=== PATIENT | female | born 1960 | race Caucasian/White ===

== ENCOUNTER 2017-02-20 13:38 | Emergency (ER) | payer BC ==
[2017-02-20 14:51] LABS: BASOPHILS 0.5 % (0.0-2.0); HEMATOCRIT 36.2 % (36.0-48.0); LYMPHOCYTES 4.4 % (20.0-40.0); LYMPHOCYTES# 0.4 X 10^3uL (0.8-3.8); MEAN CELL VOLUME 80.9 fL (80.0-100.0); MEAN CORPUS. HGB CONCENTRATION 33.3 g/dL (32.0-36.0); MEAN CORPUSCULAR HEMOGLOBIN 26.9 pg (29.0-35.0); MEAN PLATELET VOLUME 7.5 fL (7.4-10.4); MONOCYTES 2.3 % (2.0-10.0); MONOCYTES# 0.2 X 10^3uL (0.2-1.0); RED BLOOD COUNT 4.48 X 10^6uL (4.20-6.10); WHITE BLOOD COUNT 8.6 X 10^3uL (3.9-10.7)
[2017-02-20 14:55] LABS: BILIRUBIN, DIRECT 0.3 mg/dL (0.0-0.4); BILIRUBIN, TOTAL 0.6 mg/dL (0.2-1.3); CALCIUM 10.5 mg/dL (8.4-10.2); POTASSIUM 5.6 mmol/L (3.5-5.1); TOTAL PROTEIN 9.1 g/dL (6.3-8.2)
[2017-02-20 15:11] LABS: NEUTROPHILS 92.8 % (54.0-75.0)
[2017-02-20] MEDS ORDERED: ONDANSETRON HCL 4 MG/2 ML VIAL ONE (15:15)
--- NOTE | 2017-02-20 15:55 | CT REPORT ---
HISTORY: Nausea, vomiting. COMPARISON: None. TECHNIQUE: This examination was performed using automated exposure control, adjustment of mA or kV according to patient size, and/or use of iterative reconstruction technique. Axial contiguous images of the abdome n and pelvis were obtained without oral or IV contrast, coronal reformat images also performed. FINDINGS: The visualized lung bases are within normal limits. The heart apex appears normal. Liver has a normal noncontrast appearance. Gallbladder surgically absent. Severe left renal atrophy. Mild prominence of the right renal pelvis without kaleigh hydronephrosis. The pancreas and adrenal glands are unremarkabl e. The spleen is unremarkable. A few dilated fluid-filled loops of mid abdominal small bowel with some fecal small bowel in the righ t lower quadrant. The colon is decompressed. Multiple anterior abdominal wall varices. No aggressive bone lesion. Previous pelvic lymph node dissection. IMPRESSION: 1. Mildly dilated, fluid-filled loops of small bowel in the midabdomen with a fecalized loop in the r ight lower quadrant. This suggests a partial small bowel obstruction although the transition point is not visualized. This could be better assessed with oral contrast. Given history of surgery, this may be due to underlying adhesions. 2. Prior cholecystectomy. 3. Severe left renal atrophy. Final Electronic Signature: This report was electronically signed by Steve Roblero MD on 02/20/2017 3:53 PM. [email or web address] /
--- NOTE | 2017-02-20 18:47 | ER PHYSICIAN DOCUMENTATION ---
Physician Documentation [facility] Name:Joanna Mccormick Age:56 yrs Sex:Female :1960 Arrival Date:02/20/2017 Time:13:38 Bed4 Private MD: Cr Ramirez Disposition: 02/22 07:28 Chart complete. tl1 Disposition: 02/20/17 17:47 Discharged to Home/Self Care. Impression: Abdominal Pain, Periumbilical. - Condition is Good. - Discharge Instructions: Abdomen - ABDOMINAL PAIN, Unknown Cause, (Female). - Medical Reconciliation form form. - Follow up: Private Physician; When: 2 - 3 days; Reason: Recheck today's complaints, Continuance of care. - Problem is new. - Symptoms have improved. - Notes: GO TO [facility] IF YOUR PAIN AND VOMITING RECUR. HPI: 02/20 14:18 This 56 yrs old Female presents to ER via Private Vehicle with complaints of tl1 abdominal pain, nausea and vomiting. . 14:18 She is visiting from [place] and has a history of cervical and vaginal cancer, s/p chemo tl1 and XRT. She has had a cholecystectomy and appendectomy She is on Xarelto for a DVT diagnosed about a week ago. She was fine until this AM when at about 0730 when she noticed nausea followed by crampy right lower periumbilical area pain that has been 7/10 at times. Vomiting has been bilious. No blood. Last BM 2 days ago.. Historical: - Allergies: No known drug Allergies; - Home Meds: 1. Xarelto 15 mg oral tab 2. hydralazine 25 mg oral tab 1 tab 2 times per day with food 3. amlodipine 10 mg oral tab 1 tab once daily 4. metoprolol tartrate 25 mg oral tab 1 tab once daily 5. escitalopram oral 6. OxyContin Oral - PMHx: Hypertension; DVT; VAGINAL AND CERVICLE CANCER ; LYMPHADEMA; DEPRESSION; OBESITY; - PSHx: Appendectomy; Cholecysectomy; Tonsillectomy; Hysterectomy; NEPHRECTOMY; - Tetanus: < 10 years. - Ebola Screening: : Patient negative for fever greater than or equal to 101.5 degrees Fahrenheit, and additional compatible Ebola Virus Disease symptoms. - Immunization history: Flu Vaccine < 1 year. - Social history: Smoking status: Patient states was never smoker of tobacco. ROS: 14:30 Abdomen/GI: Positive for abdominal pain, nausea, vomiting, constipation, Negative for tl1 hematemesis, black/tarry stool, rectal bleeding. 14:30 All other systems are negative. Exam: 15:00 Head/Face: Normocephalic, atraumatic. tl1 Neck: Trachea midline, no thyromegaly or masses palpated, and no cervical lymphadenopathy. Supple, full range of motion without nuchal rigidity, or vertebral point tenderness. No Meningismus. Chest/axilla: Normal chest wall appearance and motion. Nontender with no deformity. No lesions are appreciated. Cardiovascular: Regular rate and rhythm with a normal S1 and S2. No gallops, murmurs, or rubs. Normal PMI, no JVD. No pulse deficits. 15:00 Respiratory: Lungs have equal breath sounds bilaterally, clear to auscultation and tl1 percussion. No rales, rhonchi or wheezes noted. No increased work of breathing, no retractions or nasal flaring. 15:00 Constitutional: The patient appears alert, awake, well developed, well hydrated, well groomed, well nourished, uncomfortable. 15:00 Abdomen/GI: Inspection: abdomen appears normal, Bowel sounds: diminished, Palpation: soft, moderate abdominal tenderness, in the umbilical area, Indicators: McBurney's point is not tender, Lehman's sign is negative, Liver: Vital Signs: 13:55 BP 168 / 61; Pulse 81; Resp 16; Temp 98.3(O); Pulse Ox 90% on R/A; Weight 136.08 kg arc (R); Height 5 ft. 6 in. (167.64 cm) (R); Pain 6/10; 15:11 BP 146 / 77; Pulse 77; Resp 16; Pulse Ox 94% on 2 lpm NC; rh 17:08 BP 156 / 56; Pulse 73; Resp 16; Pulse Ox 92% on R/A; Pain 0/10; nf 18:20 BP 144 / 62; Pulse 74; Resp 16; Pulse Ox 92% on R/A; Pain 0/10; nf 13:55 Body Mass Index 48.42 (136.08 kg, 167.64 cm) arc MDM: 13:53 Patient medically screened. tl1 14:18 Patient medically screened. tl1 16:00 Differential diagnosis: bowel obstruction, Mesenteric ischemia or infarction, tl1 non-specific abd pain, Peptic Ulcer Disease, Perf. Duodenal Ulcer, Perf. Gastric Ulcer. Data reviewed: vital signs, nurses notes, lab test result(s), CBC, electrolytes, hepatic panel, radiologic studies, CT scan, and as a result, I will discharge patient. Counseling: I had a detailed discussion with the patient and/or guardian regarding: the historical points, exam findings, and any diagnostic results supporting the discharge/admit diagnosis, lab results, radiology results, the need for outpatient follow up, a general surgeon, to return to the emergency department if symptoms worsen or persist or if there are any questions or concerns that arise at home. Medication response: The patient's symptoms have improved, Dilaudid. Response to treatment: the patient's symptoms have markedly improved after treatment, and as a result, I will discharge patient. Physician consultation: Dr General Feliciano at [facility] was called at 17:00, was contacted at 17:00, regarding patient's condition, and will see patient in ED, if symptoms recur. ED course: Her pain was significantly better after dilaudid and repeat abdominal exam showed less tenderness, and her nausea resolved. I told her she seems to have a partial small bowel obstruction that could get better or worse. She lives in the [facility] area, near [facility] and will f/u there for any recurrence or worsening of her symptoms. She is stable for d/c at this time.. 02/20 15:12 Order name: CBC AUTO DIF, MDIF/RMOR IF IND; Complete Time: 15:29 EDMS 02/20 15:27 Interpretation: WHITE BLOOD COUNT 8.6; HEMOGLOBIN 12.0; HEMATOCRIT 36.2; PLATELET COUNT tl1 328; NEUTROPHILS 92.8; LYMPHOCYTES 4.4. 02/20 15:29 Order name: BASIC METABOLIC PANEL; Complete Time: 16:21 EDMS 02/20 16:21 Interpretation: SODIUM 143; POTASSIUM 5.6; CHLORIDE 102; CARBON DIOXIDE 27; GLUCOSE tl1 148; BLOOD UREA NITROGEN 37; CREATININE 2.0; EST GLOMERULAR FILTRATION RATE 27; CALCIUM 10.5. 02/20 15:29 Order name: HEPATIC PANEL; Complete Time: 16:21 EDMS 02/20 16:22 Interpretation: ALKALINE PHOSPHATASE 138; AST 60; TOTAL PROTEIN 9.1. [facility] 02/20 15:29 Order name: LIPASE; Complete Time: 16:21 EDMS 02/20 16:22 Interpretation: LIPASE 162. [facility] 02/20 19:51 Order name: UA W/ MICRO -CULTURE IF IND EDMS 02/21 06:42 Order name: URINE CULTURE EDMS 02/22 09:36 Order name: NEGATIVE SENSITIVITY PANEL EDCO 02/20 15:56 Order name: CAT SCAN; ABD/[place] [id number]; Complete Time: 16:21 EDMS 02/20 16:21 Interpretation: see radiologist report. [facility] 02/20 14:01 Order name: NPO; Complete Time: 14:05 tl1 02/20 14:05 Order name: Iv Saline Lock; Complete Time: 14:05 02/20 14:06 Order name: Oxygen; Complete Time: 14:06 rh Dispensed Medications: 15:00 Drug: NS 0.9% 1000 ml; Route: IV; Rate: bolus; Site: left antecubital; rh 17:45 Follow up: IV Status: Completed infusion nf 15:10 Drug: Zofran 4 mg; Route: IVP; Infused Over: 2 mins; Site: left antecubital; rh 15:23 Follow up: Response: Nausea is decreased rh 15:10 Drug: Dilaudid 0.5 mg; Route: IVP; Site: left antecubital; rh 15:23 Follow up: Response: Pain is decreased rh Signatures: Carie Guzman RN RN nf Leigh, Tom, MD MD [facility] Jerri Hutchinson
--- NOTE | 2017-02-20 18:47 | ER NURSING DOCUMENTATION ---
Nurse's Notes [facility] Name:Joanna Mccormick Age:56 yrs Sex:Female :1960 Arrival Date:02/20/2017 Time:13:38 Bed4 Private MD: Diagnosis:Abdominal Pain, Periumbilical Presentation: 02/20 13:51 Acuity: CASSIDY 2 rh 14:11 Presenting complaint: Patient states: RLQ abdominal pain began this AM, described as rh cramping. Pt c/o n nausea and vomiting as well. Transition of care: Home. 14:11 Method Of Arrival: Private Vehicle rh Triage Assessment: 14:31 General: Appears in no apparent distress, Behavior is cooperative. Pain: Complains of rh pain in right lower quadrant. EENT: Oral mucosa is moist. Neuro: Level of Consciousness is awake, alert, obeys commands, Oriented to person, place, time, event. Cardiovascular: Capillary refill < 3 seconds. Respiratory: Airway is patent Respiratory effort is even, unlabored, Respiratory pattern is regular, symmetrical, Denies shortness of breath. GI: Abdomen is non- distended Reports lower abdominal pain, bloating, cramping, nausea, vomiting, Denies diarrhea. : No deficits noted. Derm: Skin is intact, is healthy with good turgor, Skin is pink, warm & dry. Musculoskeletal: Circulation, motion, and sensation intact Range of motion. Historical: - Allergies: No known drug Allergies; - Home Meds: 1. Xarelto 15 mg oral tab 2. hydralazine 25 mg oral tab 1 tab 2 times per day with food 3. amlodipine 10 mg oral tab 1 tab once daily 4. metoprolol tartrate 25 mg oral tab 1 tab once daily 5. escitalopram oral 6. OxyContin Oral - PMHx: Hypertension; DVT; VAGINAL AND CERVICLE CANCER ; LYMPHADEMA; DEPRESSION; OBESITY; - PSHx: Appendectomy; Cholecysectomy; Tonsillectomy; Hysterectomy; NEPHRECTOMY; - Tetanus: < 10 years. - Ebola Screening: : Patient negative for fever greater than or equal to 101.5 degrees Fahrenheit, and additional compatible Ebola Virus Disease symptoms. - Immunization history: Flu Vaccine < 1 year. - Social history: Smoking status: Patient states was never smoker of tobacco. Screenin:32 Infectious Disease Risk None. Abuse screen: Denies threats or abuse. Denies injuries rh from another. Nutritional screening: No deficits noted. Assessment: 14:32 See Triage Assessment done by same RN. rh 17:00 Reassessment: re-evaluation by Ryan; awaiting disposition; has not yet given urine nf sample and IV fluids still infusing. 17:11 Reassessment: re-evaluation by Ryan. nf 18:45 Reassessment: up to bathroom with assistance and was able to provide a urine sample; nf patient and family state they want to be discharged and not wait for urine urine results - Ryan aware and ok with plan. Vital Signs: 13:55 BP 168 / 61; Pulse 81; Resp 16; Temp 98.3(O); Pulse Ox 90% on R/A; Weight 136.08 kg arc (R); Height 5 ft. 6 in. (167.64 cm) (R); Pain 6/10; 15:11 BP 146 / 77; Pulse 77; Resp 16; Pulse Ox 94% on 2 lpm NC; rh 17:08 BP 156 / 56; Pulse 73; Resp 16; Pulse Ox 92% on R/A; Pain 0/10; nf 18:20 BP 144 / 62; Pulse 74; Resp 16; Pulse Ox 92% on R/A; Pain 0/10; nf 13:55 Body Mass Index 48.42 (136.08 kg, 167.64 cm) arc ED Course: 13:40 Oxygen Oxygen administration via nasal cannula @ 2L/min. rh 13:45 Notified ED Physician of patient's arrival and chief complaint. Dr. Boss notified. rh 13:46 Patient arrived in ED. cj 13:51 Jerri Hutchinson is Primary Nurse. rh 13:51 Triage completed. rh 13:53 Cr Boss MD is Attending Physician. tl1 14:19 Inserted peripheral IV: 20 gauge in left antecubital area. arc 14:32 Valuables Remains with patient Patient has correct armband on for positive rh identification. Placed in gown. Bed in low position. Call light in reach. Side rails up X 1. 15:[address] pm1 15:[address] back [address]. pm1 16:10 Report received from Ranjana. nf Administered Medications: 15:00 Drug: NS 0.9% 1000 ml; Route: IV; Rate: bolus; Site: left antecubital; rh 17:45 Follow up: IV Status: Completed infusion nf 15:10 Drug: Zofran 4 mg; Route: IVP; Infused Over: 2 mins; Site: left antecubital; rh 15:23 Follow up: Response: Nausea is decreased rh 15:10 Drug: Dilaudid 0.5 mg; Route: IVP; Site: left antecubital; rh 15:23 Follow up: Response: Pain is decreased rh Intake: 18:26 IV: 1000ml; Total: 1000ml. nf Output: 18:26 Urine: 1ml (Voided); Total: 1ml. nf Outcome: 17:47 Discharge ordered by . [email or web address] 18:26 Discharged to home via wheelchair. nf 18:26 Condition: improved 18:26 Discharge Assessment: Patient awake, alert and oriented x 3. No cognitive and/or functional deficits noted. Patient verbalized understanding of disposition instructions. 18:26 Discharge instructions given to patient, family, Instructed on discharge instructions, follow up and referral plans. medication usage, Demonstrated understanding of instructions. 18:26 IV D/Salvador 02/21 17:44 Discharge F/U Call: Spoke with: spouse with permission of patient. Name: pt was st admitted to [facility] for a partial SBO last night. Signatures: Yvonne Peña RN RN Carie Guzman RN RN Alaina Mejía pm1 Cr Boss MD MD tl1 Lavern Purdy, Jerri Garcia Jenni Hartman
[2017-02-20 19:21] LABS: URINE MUCUS NONE SEEN (Up to 25%); URINE RBC NONE SEEN (0-5/hpf); URINE SQUAMOUS EPITHELIAL CELL NONE SEEN (<= 15/hpf)
[2017-02-20 19:49] LABS: URINE APPEARANCE CLOUDY; URINE COLOR YELLOW; URINE SPECIFIC GRAVITY 1.015 (0.001-1.035)
[2017-02-20 19:50] LABS: URINE BILIRUBIN NEGATIVE (NEGATIVE); URINE BLOOD NEGATIVE (NEGATIVE); URINE GLUCOSE NORMAL (NEGATIVE); URINE KETONE NEGATIVE (NEGATIVE); URINE LEUKOCYTE ESTERASE NEGATIVE (NEGATIVE); URINE NITRITE POSITIVE (NEGATIVE); URINE PH 5.5 (5-7); URINE PROTEIN 30mg/dL (1+) (NEG - TRACE); URINE UROBILINOGEN 0.2mg/dL (Normal) (NEG-1mg/dL); URINE WBC 0-4/hpf (0-4/hpf)
[2017-02-20 19:55] LABS: URINE BACTERIA >50 ORGANISMS/hpf (<10/hpf)
== END 2017-02-20 18:47 | disposition home or self-care (01) ==
LOC: ER 13:38
DX: R10.33 Periumbilical pain (principal); R11.2 Nausea with vomiting, unspecified; N39.0 Urinary tract infection, site not specified; B96.20 Unspecified Escherichia coli [E. coli] as the cause of diseases classified elsewhere; Z86.718 Personal history of other venous thrombosis and embolism; Z79.01 Long term (current) use of anticoagulants; Z85.41 Personal history of malignant neoplasm of cervix uteri; Z85.44 Personal history of malignant neoplasm of other female genital organs; Z92.21 Personal history of antineoplastic chemotherapy; Z92.3 Personal history of irradiation; I10 Essential (primary) hypertension; Z79.899 Other long term (current) drug therapy
CPT/HCPCS: 74176; 80048; 80076; 81001; 83690; 85025; 87077; 87086; 87186; 96361; 96374; 96375; 99284; J1170; J2405